=== PATIENT | male | born 1960 | race Two or more races ===

== ENCOUNTER 2022-07-29 09:49 | Day surgery (SDC) | payer OTHER ==
[2022-07-29] MEDS ORDERED: BUPIVACAINE HCL/PF 0.5% (5 MG/ML) 30 ML VIAL IJ ONE (10:19)
[2022-07-29] MEDS ORDERED: DEXAMETHASONE SOD PHOSPHATE/PF 10 MG/ML SDV ONE (10:19)
[2022-07-29] MEDS ORDERED: MIDAZOLAM HCL 2 MG/2 ML SINGLE DOSE VIAL ONE (10:19)
[2022-07-29 10:26] VITALS: BP 144/83; PULSE 82; RESP 20; TEMP 97.1
== END 2022-07-29 11:30 | disposition home or self-care (01) ==
LOC: FASU 09:49
PROVIDERS: ATTEND Orthopaedic Surgery Sports Medicine
PROC: 0RNJ4ZZ Release Right Shoulder Joint, Percutaneous Endoscopic Approach (ICD-10-PCS; principal; 2022-07-29)
DX: Z53.09 Procedure and treatment not carried out because of other contraindication (principal)
CPT/HCPCS: 82962